=== PATIENT | female | born 1985 | race African-American/Black ===

== ENCOUNTER 2018-04-16 21:39 | Emergency (ER) | payer OTHER ==
[~2018-04-16] VITALS: Ht 177.8 cm; Wt 149.5 kg
[2018-04-16] MEDS ORDERED: BENZONATATE 100 MG CAPSULE. PO ONE (22:30)
[2018-04-16] MEDS ORDERED: IBUPROFEN 400 MG TABLET. PO ONE (22:30)
[2018-04-16 22:44] LABS: INFLUENZA A PATIENT NEGATIVE (NEGATIVE); INFLUENZA B PATIENT NEGATIVE (NEGATIVE)
--- NOTE | 2018-04-16 23:14 | ED.ADGEN ---
Adult General HPI HPI Patient is a 32 year old female who presents with cough. Patient has been ill over the last 2-3 days. Her primary complaint is a persistent cough. She also has some musculoskeletal type chest pain which has worsened over the same time. The cough is worse at night. It is nonproductive. She does not have a personal history of coronary artery disease but she does have a strong family history of the same. Her pain symptoms started around 6 AM this morning and have been intermittent today, primarily worse when she coughs. She also has some upper airway congestion. She states every other person in her house has been ill with flu-like symptoms. She does work in a daycare. Review of Systems Review of Systems Constitutional: + chills Eyes: Denies change in visual acuity, redness, or eye pain HENT: Denies nasal congestion or sore throat Respiratory: Denies shortness of breath Cardiovascular: No additional information not addressed in HPI GI: Denies abdominal pain, nausea Integument: Denies rash or skin lesions All other systems were reviewed and found to be within normal limits, except as documented in this note. Current Medications Current Medications Current Medications Medications (Trade) Dose Ordered Sig/Maximus Start Time Stop Time Status Last Admin Dose Admin Azithromycin (Zithromax) 250 mg STK-MED ONCE 04/16/18 23:42 04/16/18 23:48 DC Benzonatate (Tessalon Perle) 100 mg 1X ONCE 04/16/18 22:30 04/16/18 23:00 DC 04/16/18 23:05 100 MG Ibuprofen (Motrin) 800 mg 1X ONCE 04/16/18 22:30 04/16/18 23:00 DC 04/16/18 23:05 800 MG Allergies Allergies Allergies Coded Allergies Type Severity Reaction Last Updated Verified No Known Drug Allergies 04/16/18 No Physical Exam Physical Exam Constitutional: Well developed, well nourished, no acute distress, non-toxic appearance HENT: Normocephalic, atraumatic, bilateral external ears normal, oropharynx moist, no oral exudates Eyes: PERRLA, EOMI, conjunctiva normal Neck: Normal range of motion Cardiovascular:Heart rate regular rhythm, no murmur Lungs & Thorax: Bilateral breath sounds clear to auscultation Skin: Warm, dry, no erythema, no rash Extremities: No tenderness Neurologic: Alert and oriented X 3 Psychologic: Affect normal Current Patient Data Vital Signs Vital Signs Date Time Temp Pulse Resp B/P (MAP) Pulse Ox O2 Delivery O2 Flow Rate FiO2 04/16/18 23:22 91 20 144/74 (97) 98 Room Air 04/16/18 21:40 99.0 Lab Results Laboratory Tests Test 04/16/18 22:15 04/16/18 23:00 Influenza Type A (Rapid) Negative (NEGATIVE) Influenza Type B (Rapid) Negative (NEGATIVE) Group A Streptococcus Rapid Negative (NEGATIVE) Troponin I Quantitative 0.037 ng/mL (0-0.055) EKG EKG No STEMI Radiology/Procedures Radiology/Procedures [] Course & Med Decision Making Course & Med Decision Making Pertinent Labs and Imaging studies reviewed. (See chart for details) Patient is evaluated immediately on arrival to her room. Her lungs are clear with good air movement in all maynard. She is nontoxic appearing. Given her history of chest pain, a single troponin will be performed. EKG is also acquired and is without acute findings. Will check for influenza and rapid strep. Medications for symptom control. 23:40: Patient is discharged to home. Her screening for influenza and strep are negative. Prior to discharge, the patient does state she had a prior history of what she describes to be walking pneumonia. Tonight, she feels that her symptoms are similar to that. I did not hear any adventitious lung sounds in this patient but she is treated now empirically with azithromycin. She is given the first dose in the ER. She is discharged home with the same as well as some hydrocodone elixir, Tessalon Perles, and ibuprofen. Patient is advised of opiate precautions. She will follow up with her primary care doctor or come back to the ER for any new or worsening symptoms. Final Impression Final Impression Viral Syndrome Dragrhoda Disclaimer Lilliana Disclaimer This electronic medical record was generated, in whole or in part, using a voice recognition dictation system. DESIREE LOWE DO Apr 16, 2018 23:14
[2018-04-16 23:22] VITALS: BP 144/74
[2018-04-16] MEDS ORDERED: HYDR473S51 PO (23:36)
[2018-04-16] MEDS ORDERED: IBUP800T19 PO (23:36)
[2018-04-16] MEDS ORDERED: BENZ100C PO (23:37)
[2018-04-16] MEDS ORDERED: AZITHROMYCIN 250 MG TABLET. ONE (23:42)
[2018-04-16] MEDS ORDERED: AZIT250T6 PO (23:42)
[2018-04-16] MEDS ORDERED: AZITHROMYCIN 250 MG TABLET. PO ONE (23:45)
--- NOTE | 2018-04-23 09:15 | EKG ---
[address] [address] Test Date: 2018-04-16 Test Time: 22:22:58 Pat Name: LISANDRA GREENE Department: Room: Gender: F Environmental Services Coordinator: : 1985 Requested By: DESIREE LOWE Order Number: [id number] Reading MD: Tej Santa MD Measurements Intervals [place] Rate: 97 P: -163 TN: 150 QRS: 39 QRSD: 92 T: 24 QT: 324 QTc: 415 Interpretive Statements SINUS RHYTHM Electronically Signed On 04-23-2018 9:13:05 FRONT W[employer]OW CASHIER by Tej Santa MD
== END 2018-04-16 23:45 | disposition home or self-care (01) ==
LOC: ER 21:39
DX: B34.9 Viral infection, unspecified (principal)
CPT/HCPCS: 36415; 84484; 87070; 87804; 87880; 93005; 99284; J0456

== ENCOUNTER 2018-10-02 17:28 | Emergency (ER) | payer OTHER ==
[~2018-10-02] VITALS: Ht 177.8 cm; Wt 144.7 kg
[~2018-10-02 17:28] MED LIST: AZIT250T6 PO; BENZ100C PO; HYDR473S51 PO; IBUP800T19 PO
[2018-10-02 17:44] VITALS: BP 174/99
[2018-10-02] MEDS ORDERED: ALBU2.5V8 INH (17:56)
[2018-10-02] MEDS ORDERED: HYDR115S2 PO (17:56)
[2018-10-02] MEDS ORDERED: AMOX1TAB61 PO (17:56)
--- NOTE | 2018-10-02 17:56 | PHYS DOC ---
Past History Past Medical History: Other Past Surgical History: Tonsillectomy Alcohol Use: None Drug Use: None Adult General Chief Complaint Chief Complaint: COUGH HPI HPI Patient is a 32 year old female who presents with pinning of cough. Patient complaining of nasal congestion and facial pain for the last few days with productive cough. Patient states she has had history of sinusitis 3 times a year and usually this antibiotic for improvement of her condition. Review of Systems Review of Systems Constitutional: Denies fever or chills [] Eyes: Denies change in visual acuity, redness, or eye pain [] HENT: Force nasal congestion and sore throat Respiratory: Reports cough Cardiovascular: No additional information not addressed in HPI [] GI: Denies abdominal pain, nausea, vomiting, bloody stools or diarrhea [] : Denies dysuria or hematuria [] Musculoskeletal: Denies back pain or joint pain [] Integument: Denies rash or skin lesions [] Neurologic: Denies headache, focal weakness or sensory changes [] Endocrine: Denies polyuria or polydipsia [] All other systems were reviewed and found to be within normal limits, except as documented in this note. Allergies Allergies Allergies Coded Allergies Type Severity Reaction Last Updated Verified No Known Drug Allergies 04/16/18 No Physical Exam Physical Exam Constitutional: Well developed, well nourished, mild distress, non-toxic appearance. [] HENT: Normocephalic, atraumatic, bilateral external ears normal, oropharynx moist, no oral exudates, nasal congestion.[] Eyes: PERRLA, EOMI, conjunctiva normal, no discharge. [] Neck: Normal range of motion, no tenderness, supple, no stridor. [] Cardiovascular:Heart rate regular rhythm, no murmur [] Lungs & Thorax: Bilateral breath sounds clear to auscultation [] Abdomen: Bowel sounds normal, soft, no tenderness, no masses, no pulsatile masses. [] Skin: Warm, dry, no erythema, no rash. [] Back: No tenderness, no CVA tenderness. [] Extremities: No tenderness, no cyanosis, no clubbing, ROM intact, no edema. [] Neurologic: Alert and oriented X 3, normal motor function, normal sensory function, no focal deficits noted. [] Psychologic: Affect normal, judgement normal, mood normal. [] Current Patient Data Vital Signs Vital Signs Date Time Temp Pulse Resp B/P (MAP) Pulse Ox O2 Delivery O2 Flow Rate FiO2 10/02/18 17:44 98.3 82 18 97 Room Air EKG EKG [] Radiology/Procedures Radiology/Procedures [] Course & Med Decision Making Course & Med Decision Making I've spoken with the patient and/or caregivers. I've explained the patient's condition, diagnosis and treatment plan based on information available to me at this time. I've answered the patient's and/or caregivers questions and addressed any concerns. The patient and/or caregivers have a good understanding the patient's diagnosis, condition and treatment plan as can be expected at this point. Vital signs have been stabilized. The patient's condition is stable for discharge from the emergency department. The patient will pursue further outpatient evaluation with her primary care provider or other designated consulting physician as outlined in the discharge instructions. Patient and/or caregivers are agreeable to this plan of care and follow-up instructions have been explained in detail. The patient and/or caregivers have received these instructions in written format and expressed understanding of these discharge instructions. The patient and her caregivers are aware that if any significant change in condition or worsening of symptoms should prompt him to immediately return to this of the closest emergency department. If an emergent department is not readily available I would encourage him to call 911. Adriannaon Disclaimer Dragon Disclaimer This electronic medical record was generated, in whole or in part, using a voice recognition dictation system. Departure Departure: Impression: Primary Impression: Acute sinusitis Disposition: HOME, SELF-CARE (at 1800) Condition: STABLE Referrals: PCP,NO (PCP) Patient Instructions: Cough, Adult, Sinusitis Additional Instructions: Drink plenty of liquids Follow-up with your primary care physician in 3-5 days Return to ER if not getting better Scripts Hydrocodone/Chlorphen P-Stirex (Tussionex Pennkinetic Susp) 115 Ml Radha.er.12h 5 ML PO BID for cough and congestion, #60 ML Prov: LEANDRO PACKER MD 10/02/18 Albuterol Sulfate (PROAIR HFA INHALER) 8.5 Gm Hfa.aer.ad 2 PUFF INH PRN Q6HRS PRN for SHORTNESS OF BREATH, #1 INHALER 0 Refills Prov: LEANDRO PACKER MD 10/02/18 Amoxicillin/Potassium Clav (AUGMENTIN 875-125 TABLET) 1 Each Tablet 1 TAB PO BID for infection, #14 TAB Prov: LEANDRO PACKER MD 10/02/18 LEANDRO PACKER MD Oct 02, 2018 17:56
== END 2018-10-02 18:09 | disposition home or self-care (01) ==
LOC: ER 17:28
DX: J01.90 Acute sinusitis, unspecified (principal); Z90.89 Acquired absence of other organs
CPT/HCPCS: 99283

== ENCOUNTER 2019-01-21 18:22 | Emergency (ER) | payer OTHER ==
[~2019-01-21] VITALS: Ht 177.8 cm; Wt 149.5 kg
[~2019-01-21 18:22] MED LIST changes: +ALBU2.5V8 INH; +AMOX1TAB61 PO; +HYDR115S2 PO
[2019-01-21 18:35] VITALS: BP 170/83
[2019-01-21] MEDS ORDERED: PRED20TA PO (19:03)
[2019-01-21] MEDS ORDERED: AZIT250T6 PO (19:03)
--- NOTE | 2019-01-21 19:04 | PHYS DOC ---
Past History Past Medical History: Hypertension, Other Past Surgical History: Tonsillectomy Smoking: Non-smoker Alcohol Use: None Drug Use: None Adult General Chief Complaint Chief Complaint: SORE THROAT HPI HPI Ms. Betancourt is a 33yo AAF w/ PMH significant for PCOS, HTN, asthma, and seasonal allergies presents w/ 2 weeks of cough and congestion and 1 day of sore throat. The cough is intermittently productive of clear, frothy mucus. She reports frontal and maxillary sinus pressure that radiates into b/l ears. No hearing loss, discharge, or pain. The sore throat is not dry or itchy, but "just sore." She reports feeling sinus drainage dripping down the back of her throat. She has tried numerous OTC remedies including Neti Pot and cough and cold medications. Works at a daycare. Denies fever, chills, nausea, vomiting, CP, or SOA. Review of Systems Review of Systems Constitutional: Denies fever or chills Eyes: Denies redness or eye pain HENT: Reports nasal congestion, sinus pressure, b/l ear pressure, and sore throat. Respiratory: Reports productive cough. Denies shortness of breath. Cardiovascular: Denies chest pain or palpitations GI: Denies abdominal pain, nausea, or vomiting : Denies dysuria or hematuria Musculoskeletal: Denies back pain or joint pain Integument: Denies rash or skin lesions Neurologic: Denies headache, focal weakness or sensory changes Complete systems were reviewed and found to be within normal limits, except as documented in this note. Allergies Allergies Allergies Coded Allergies Type Severity Reaction Last Updated Verified No Known Drug Allergies 04/16/18 No Physical Exam Physical Exam Constitutional: Well developed, obese, no acute distress, non-toxic appearance HENT: Normocephalic, atraumatic, oropharynx moist w/ hyperemic posterior oropharyngeal mucosa, TMs clear, maxillary sinus pressure on palpation, turbina vishal swollen bilaterally Eyes: PERRL, EOMI, conjunctiva normal, no discharge Neck: Normal range of motion, no tenderness, supple, no cervical or submental lymphadenopathy Cardiovascular: Heart rate normal, regular rhythm w/o gallops, rubs, or murmurs Lungs & Thorax: Bilateral breath sounds clear to auscultation, no wheezing throughout Abdomen: Soft, no tenderness Skin: Warm, dry, no erythema, no rash Extremities: No tenderness, ROM intact, no edema Neurologic: Alert and oriented X 3, no focal deficits noted Psychologic: Affect normal, judgement normal Current Patient Data Vital Signs Vital Signs Date Time Temp Pulse Resp B/P (MAP) Pulse Ox O2 Delivery O2 Flow Rate FiO2 01/21/19 18:35 83 16 99 Room Air EKG EKG [] Radiology/Procedures Radiology/Procedures [] Course & Med Decision Making Course & Med Decision Making Ms. Betancourt presented w/ cough, congestion, and sore throat. Prescriptions for a steroid and antibiotic were provided w/ instructions to take the steroid for 1-2 days and if not feeling better at that time, begin taking the antibiotic. Patient stable for discharge with outpatient follow-up with PCP. Discussed findings and plan with patient and family, who acknowledge understanding and agreement. Dragon Disclaimer Dragon Disclaimer This electronic medical record was generated, in whole or in part, using a voice recognition dictation system. Departure Departure: Impression: Primary Impression: Sinusitis Disposition: HOME, SELF-CARE Condition: STABLE Referrals: JESSICA YBRD MD (PCP) Patient Instructions: Sinusitis, [id number] Scripts Azithromycin (AZITHROMYCIN TABLET) 250 Mg Tablet 1 PKG PO UD for Sinusitis, #6 TAB Take 2 tablets today and then one tablet every day thereafter for the next 4 days Prov: JOBY DOUGHERTY DO 01/21/19 Prednisone (PREDNISONE) 20 Mg Tablet 2 TAB PO DAILY for Sinusitis, #8 TAB Start this medication tomorrow, Monday01/22/19 Prov: JOBY DOUGHERTY DO 01/21/19 Problem Qualifiers Primary Impression: Sinusitis Sinusitis location: maxillary Chronicity: acute Recurrence: not specified as recurrent Qualified Codes: J01.00 - Acute maxillary sinusitis, unspecified JOBY DOUGHERTY DO Jan 21, 2019 19:03
[2019-01-21] MEDS ORDERED: DEXAMETHASONE 4 MG TABLET PO ONE (19:15)
== END 2019-01-21 19:15 | disposition home or self-care (01) ==
LOC: ER 18:22
DX: J01.00 Acute maxillary sinusitis, unspecified (principal); I10 Essential (primary) hypertension; J45.909 Unspecified asthma, uncomplicated
CPT/HCPCS: 99283; J8540

== ENCOUNTER 2020-07-05 21:54 | Emergency (ER) | payer OTHER ==
[~2020-07-05] VITALS: Ht 177.8 cm; Wt 149.5 kg
[~2020-07-05 21:54] MED LIST changes: +PRED20TA PO
--- NOTE | 2020-07-05 22:04 | PHYS DOC ---
Past History Past Medical History: Hypertension, Other Past Surgical History: Tonsillectomy Smoking: Non-smoker Alcohol Use: None Drug Use: None General Adult HPI: HPI: ".. I got this redness and swellling in my Rt. leg... ".." I ve had it for a while.. I have been seeing Dr. Byrd... she did some labs..and they were okay..,. I just worried.. maybe I have a clot in this Rt.lower leg..." did give me some lasix.. but that has not seemed to help..." Patient is a 34 year old female who presents with above hx and complaints lower right leg pain and swelling. Pain and edema has been present for several days. Has follow-up with Dr. Byrd her primary care. No history of recent trauma. No history of previous DVTs or coagulopathy. Patient does have noticeable edema in right leg as compared to left. Distal neurovascular and pulses are equal to left leg. Has marked tenderness along right lower tibial ridge. Patient does have pitting edema on right lower leg. There is some mild warmth to the area of edema. No findings of cording. No history of fever or chills. Patient denies any travel. Patient denies any history immunosuppression. No history of specific ill contacts. Patient does not smoke. Review of Systems: Review of Systems: Constitutional: Denies fever or chills Eyes: Denies change in visual acuity HENT: Denies nasal congestion or sore throat Respiratory: Denies cough or shortness of breath Cardiovascular: Denies chest pain or edema GI: Denies abdominal pain, nausea, vomiting, bloody stools or diarrhea : Denies dysuria Musculoskeletal: Complains of right lower leg pain and edema Integument: Denies rash Neurologic: Denies headache, focal weakness or sensory changes Endocrine: Denies polyuria or polydipsia Lymphatic: Denies swollen glands Psychiatric: Denies depression or anxiety Family History: Family History: Noncontributory to presentation. Current Medications: Current Meds: See nursing for home meds Allergies: Allergies: Allergies Coded Allergies Type Severity Reaction Last Updated Verified No Known Drug Allergies 04/16/18 No Physical Exam: PE: Constitutional: Moderate acute distress, non-toxic appearance. [] HENT: Normocephalic, atraumatic, bilateral external ears normal, oropharynx moist, no oral exudates, nose normal. [] Eyes: PERRLA, EOMI, conjunctiva normal, no discharge. [] Neck: Normal range of motion, no tenderness, supple, no stridor. [] Cardiovascular:Heart rate regular rhythm, no murmur [] Lungs & Thorax: Bilateral breath sounds equal apex on auscultation [] Abdomen: Bowel sounds normal, soft, no tenderness, no masses, no pulsatile masses. Obese Skin: Warm, dry, no erythema, no rash. [] Back: No tenderness, no CVA tenderness. [] Extremities: No tenderness, no cyanosis, no clubbing, ROM intact, no edema. [] Except findings in right lower leg as per HPI. Neurologic: Alert and oriented X 3, normal motor function, normal sensory function, no focal deficits noted. [] Psychologic: Affect anxious, judgement normal, mood normal. [] EKG: EKG: My interpretation EKG shows a sinus rhythm at 77 bpm. No acute morphology. [] Radiology/Procedures: Radiology/Procedures: [place] [address] IMAGING REPORT Signed PATIENT: LISANDRA GREENE ACCOUNT: [id number] : 1985 LOCATION: ER AGE: 34 SEX: F EXAM STATUS: REG ER ORD. PHYSICIAN: DAYANNA RAIN MD REASON: pain, edema PROCEDURE: TIBIA FIBULA RIGHT Study: XR RT TIBIA+FIBULA Indication: Pain. Edema. Comparison: None. Findings: No acute fracture or radiographic evidence for stress injury involving the tibia or fibula. Trace osteophytic ridging at the periphery of the lateral tibial plateau. Patellar osteophytes and mild chronic osseous remodeling at the patellar tendon origin. Enthesophyte formation at the Achilles insertion and a small plantar calcaneal spur. No malalignment at the ankle. Nonspecific fatty reticulation of the subcutaneous tissues such as at the mid lower leg to the ankle. Impression: 1. No acute radiographic abnormality of the tibia or fibula. 2. Mild knee joint arthrosis mainly at the patellofemoral compartment. 3. There appears to be subcutaneous edema mainly at the mid to lower leg. Electronically signed by: PRATIK ESCOBAR MD (07/06/2020 1:09 AM) [facility] DICTATED AND SIGNED BY: PRATIK ESCOBAR MD DATE: 07/06/20 010 CC: DAYANNA RAIN MD; JESSICA BYRD MD ~MTH0 0 [][place] [address] IMAGING REPORT Signed PATIENT: LISANDRA GREENE ACCOUNT: [id number] : 1985 LOCATION: ER AGE: 34 SEX: F EXAM STATUS: REG ER ORD. PHYSICIAN: DAYANNA RAIN MD REASON: edema, pain PROCEDURE: VENOUS LOWER EXTREMITY RIGHT Exam: Right lower extremity venous duplex study INDICATION: Leg swelling TECHNIQUE: Using a combination of real-time ultrasound imaging and color-flow and pulse Doppler imaging techniques along with graded compression and augmentation, duplex evaluation of the deep venous systems of rightlower extremity was performed. Multiple images were obtained. Findings: There is no sonographic evidence for deep venous thrombosis involving the visualized deep venous structures of the right lower extremity. IMPRESSION: No acute DVT in the right lower extremities. Electronically signed by: Jose Gillette MD (07/05/2020 11:26 PM) [facility] DICTATED AND SIGNED BY: JOSE GILLETTE MD DATE: 07/05/204 CC: DAYANNA RAIN MD; JESSICA BYRD MD ~MTH0 0 Heart Score: C/O Chest Pain: N/A HEART Score for Chest Pain: HEART Score for Chest Pain Response (Comments) Value History Slighlty/Non-Suspicious 0 ECG Normal 0 Age < 45 0 Risk Factors No Risk Factors 0 Troponin < Normal Limit 0 Total 0 Risk Factors: Risk Factors: DM, Current or recent (<one month) smoker, HTN, HLP, family history of CAD, obesity. Risk Scores: Score 0 - 3: 2.5% MACE over next 6 weeks - Discharge Home Score 4 - 6: 20.3% MACE over next 6 weeks - Admit for Clinical Observation Score 7 - 10: 72.7% MACE over next 6 weeks - Early Invasive Strategies Course & Med Decision Making: Course & Med Decision Making Pertinent Labs and Imaging studies reviewed. (See chart for details) Patient elevate right leg. Take Tylenol and ibuprofen for pain. Patient take Bactrim DS 1 tablet twice a day to cover possible localized infection. Patient follow-up with Dr. Byrd. No obvious findings of DVT by lab or ultrasound today. X-ray shows no acute skeletal issues for the pain and edema. Must follow-up. Impression: 1. Right lower leg edema and pain 2. Mild anemia hemoglobin 10.7 3. Possible right lower cellulitis. [] Dragon Disclaimer: Dragon Disclaimer: This electronic medical record was generated, in whole or in part, using a voice recognition dictation system. Departure Departure: Referrals: JESSICA BYRD MD (PCP) Scripts Sulfamethoxazole/Trimethoprim (BACTRIM DS TABLET) 1 Each Tablet 1 TAB PO BID for edema for 10 Days, #20 TAB 0 Refills Prov: DAYANNA RAIN MD 07/06/20 Dragon Disclaimer This chart was dictated in whole or in part using Voice Recognition software in a busy, high-work load, and often noisy Emergency Department environment. It may contain unintended and wholly unrecognized errors or omissions. DAYANNA RAIN MD Jul 05, 2020 22:04
[2020-07-05] MEDS ORDERED: IV RINGERS SOLUTION,LACTATED 1,000 ML IV SCH (22:45)
--- NOTE | 2020-07-05 23:28 | RAD ---
Exam: Right lower extremity venous duplex study INDICATION: Leg swelling TECHNIQUE: Using a combination of real-time ultrasound imaging and color-flow and pulse Doppler imagi ng techniques along with graded compression and augmentation, duplex evaluation of the deep venous sy stems of rightlower extremity was performed. Multiple images were obtained. Findings: There is no sonographic evidence for deep venous thrombosis involving the visualized deep venous stru ctures of the right lower extremity. IMPRESSION: No acute DVT in the right lower extremities. Electronically signed by: Jose Nguyen MD (07/05/2020 11:26 PM) ASHLEY
--- NOTE | 2020-07-05 23:38 | EKG ---
[address] [address] Test Date: 2020-07-05 Test Time: 23:30:45 Pat Name: LISANDRA GREENE Department: Room: Gender: F Domestic Cleaner: : 1985 Requested By: DAYANNA RAIN Order Number: [id number] Reading MD: Measurements Intervals [place] Rate: 77 P: 42 MI: 156 QRS: 55 QRSD: 100 T: 31 QT: 368 QTc: 418 Interpretive Statements SINUS RHYTHM NORMAL ECG RI6.02 No previous ECG available for comparison
[2020-07-05 23:56] LABS: BASO # 0.2 x10^3/uL (0.0-0.2); BASO % 2 % (0-3); EOS # 0.2 x10^3/uL (0.0-0.7); EOS % 2 % (0-3); HEMOGLOBIN 10.7 g/dL (12.0-15.5); LYMPH % 40 % (24-48); MEAN CORPUSCULAR HEMOGLOBIN 28 pg (25-35); MEAN CORPUSCULAR HGB CONC 32 g/dL (31-37); MEAN CORPUSCULAR VOLUME 86 fL (79-100); MONO # 0.3 x10^3/uL (0.0-1.1); MONO % 4 % (0-9); NEUT # 3.9 x10^3uL (1.8-7.7); NEUT % 52 % (31-73); PLATELET COUNT 448 x10^3/uL (140-400); RED BLOOD COUNT 3.84 x10^6/uL (3.50-5.40); RED CELL DISTRIBUTION WIDTH 14.6 % (11.5-14.5); WHITE BLOOD COUNT 7.6 x10^3/uL (4.0-11.0)
[2020-07-06 00:05] LABS: CALCIUM 8.9 mg/dL (8.5-10.1); CREATININE 0.8 mg/dL (0.6-1.0); GFR 100.6; POTASSIUM 3.5 mmol/L (3.5-5.1)
[2020-07-06 00:18] LABS: ALBUMIN 3.6 g/dL (3.4-5.0); DIRECT BILIRUBIN 0.1 mg/dL (0.0-0.2); MAGNESIUM 1.8 mg/dL (1.8-2.4); TOTAL BILIRUBIN 0.2 mg/dL (0.2-1.0); TOTAL PROTEIN 7.2 g/dL (6.4-8.2)
[2020-07-06] MEDS ORDERED: SMZ/TMP 800/160MG TABLET. PO ONE (00:30)
--- NOTE | 2020-07-06 01:12 | RAD ---
Study: XR RT TIBIA+FIBULA Indication: Pain. Edema. Comparison: None. Findings: No acute fracture or radiographic evidence for stress injury involving the tibia or fibula. Trace osteophytic ridging at the periphery of the lateral tibial plateau. Patellar osteophytes and mi ld chronic osseous remodeling at the patellar tendon origin. Enthesophyte formation at the Achilles i nsertion and a small plantar calcaneal spur. No malalignment at the ankle. Nonspecific fatty reticulation of the subcutaneous tissues such as at the mid lower leg to the ankle. Impression: 1. No acute radiographic abnormality of the tibia or fibula. 2. Mild knee joint arthrosis mainly at the patellofemoral compartment. 3. There appears to be subcutaneous edema mainly at the mid to lower leg. Electronically signed by: PRATIK ESCOBAR MD (07/06/2020 1:09 AM) [facility]
[2020-07-06] MEDS ORDERED: SULF1TAB24 PO (01:20)
[2020-07-06 01:35] VITALS: BP 168/86
[2020-07-06 01:37] LABS: BARBITURATES NEG (NEG); BENZODIAZEPINES NEG (NEG); CANNABINOIDS NEG (NEG); COCAINE NEG (NEG); METHADONE NEG (NEG); OPIATES NEG (NEG); PHENCYCLIDINE NEG (NEG)
[2020-07-06 01:39] LABS: BACTERIA,URINE 0 /HPF (0-FEW); BILIRUBIN,URINE NEG (NEG); CLARITY,URINE CLEAR; COLOR,URINE YELLOW; GLUCOSE,URINE NEG (NEG); NITRITE,URINE NEG (NEG); RBC,URINE 0 /HPF (0-2); SQUAMOUS EPITHELIAL CELL,UR MANY /LPF; UROBILINOGEN,URINE 0.2 mg/dL (0.2 mg/dL)
[2020-07-06 01:41] LABS: AMPHETAMINE/METHAMPHETAMINE NEG (NEG)
== END 2020-07-06 01:35 | disposition home or self-care (01) ==
LOC: ER 21:54
DX: M79.604 Pain in right leg (principal); R60.0 Localized edema; D64.9 Anemia, unspecified; I10 Essential (primary) hypertension
CPT/HCPCS: 36415; 73590; 80048; 80076; 80307; 81001; 82550; 83690; 83735; 83880; 84443; 84484; 84702; 85025; 85379; 85610; 93005; 93971; 96360; 99285; J7120